=== PATIENT | female | born 1980 | race Caucasian/White ===

== ENCOUNTER → 2021-12-09 10:34 | Outpatient (CLI) | payer OTHER, SELFPAY ==
--- NOTE | ~2021-12-09 | US_ITS ---
US thyroid INDICATION: Follow-up thyroid nodule TECHNIQUE: Real-time sonographic images of the thyroid gland were obtained. COMPARISON: No prior studies for comparison. FINDINGS: The right thyroid lobe measures 4.5 x 1.1 x 1.2 cm. The left thyroid lobe measures 5.7 x 2 x 2.2 cm. There is normal echotexture and echogenicity throughout the thyroid gland. In the inferior aspect of the left lobe there is a 2.8 x 1.8 x 1.9 cm hypoechoic mass which is solid, wider than krista l with irregular margins, TR 4, moderately suspicious. Increased bilateral vascular flow is present. IMPRESSION: 1. Abnormal left thyroid mass measuring 2.8 cm maximum dimension, TR 4, moderately suspicious. Recom mend correlation with prior outside ultrasounds to assess stability. If prior ultrasounds are not venus ilable, correlation with fine-needle aspiration biopsy recommended. Reviewed, dictated and finalized at location B. ER LATHE SET UP OPERATOR IMPRESSION: 1. Abnormal left thyroid mass measuring 2.8 cm maximum dimension, TR 4, modera tely suspicious. Recommend correlation with prior outside ultrasounds to assess stability. If prior ultrasounds are not available, correlation with fine-needl e aspiration biopsy recommended.
== END ==
PROVIDERS: Visit Provider Obstetrics & Gynecology Gynecology
DX: E07.9 Disorder of thyroid, unspecified (principal)
CPT/HCPCS: 76536

== ENCOUNTER → 2022-01-02 10:28 | Outpatient (CLI) | payer OTHER, SELFPAY ==
--- NOTE | ~2022-01-02 | MM_ITS ---
EXAMINATION: MM screening alex BI w ashvin HISTORY: Screening mammogram TECHNIQUE: Craniocaudal and mediolateral oblique 3-D tomosynthesis images were obtained and synthetic 2-D images were generated. CAD analysis was submitted and interpreted. COMPARISON: December 13, 2015 bilateral diagnostic mammography and limited right breast ultrasound exa mination BREAST PARENCHYMAL COMPOSITION: The breasts are extremely dense, which lowers the sensitivity of mamm ography. FINDINGS: There is no evidence of suspicious mass, calcification, or architectural distortion to sugg est malignancy in either breast. There has been no suspicious interval change. IMPRESSION: 1. No mammographic evidence of malignancy. 2. Recommend routine screening mammography in one year. BI-RADS Category 1: Negative Reviewed, dictated and finalized at location A. OGRAPHIC MACHINE OPERATOR
== END ==
PROVIDERS: Visit Provider Obstetrics & Gynecology Gynecology
DX: Z12.31 Encounter for screening mammogram for malignant neoplasm of breast (principal)
CPT/HCPCS: 77063; 77067